=== PATIENT | male | born 1970 | race Caucasian/White ===

== ENCOUNTER → 2018-10-20 | Outpatient (CLI) | payer BC, OTHER ==
--- NOTE | 2018-10-20 16:01 | REP ---
Scrotal ultrasound for right testicular lump: The right testis measures 4.4 x 2.3 x 3.4 cm. Left testis measures 5.3 x 2.1 x 3.8 cm. There are no intratesticular masses or cysts. However, there is an extra testicular nodule at the lower pole of the right testis with rim calcification measuring 6 x 3 x 7 mm. The left testis is unremarkable. The right epididymal head measures 7 ml and left epididymal head 10 mm. There is a right epididymal head 2.3 mm cyst. There is vascular flow in both testes. The Doppler resistive index of the parenchymal arteries on the right is 0.6 and on the left 0.62. Impression: No testicular masses are identified. There is an extra testicular nodule at the lower pole of the right testis measuring 6 x 3 x 7 mm with rim calcification. Electronically Signed by Jonathan Stringer MD 10/20/2018 03:53 P
== END ==
LOC: M RAD 15:00
PROVIDERS: ATTEND Physician Assistant Medical
DX: N49.2 Inflammatory disorders of scrotum (principal); N50.811 Right testicular pain

== ENCOUNTER → 2019-06-14 | Outpatient (REF) | payer OTHER ==
[2019-06-14 13:02] LABS: BASO # 0.1 10^3/uL (0.0-0.2); BASO % 1.4 % (0.0-1.0); EOS # 0.1 10^3/uL (0.0-0.5); EOS % 1.7 % (0.0-3.0); HEMATOCRIT 48.7 % (42.0-52.0); HEMOGLOBIN 16.8 g/dl (13.5-17.5); LYMPH # 0.9 10^3/uL (1.5-5.0); LYMPH % 23.8 % (24.0-44.0); MEAN CORPUSCULAR HEMOGLOBIN 33.1 pg (27.0-33.0); MEAN CORPUSCULAR HGB CONC 34.5 g/dl (32.0-36.5); MEAN CORPUSCULAR VOLUME 95.9 fl (80.0-96.0); MONO # 0.8 10^3/uL (0.0-0.8); MONO % 21.6 % (0.0-5.0); NEUTROPHILS # 1.8 10^3/uL (1.5-8.5); NEUTROPHILS % 50.7 % (36.0-66.0); PLATELET COUNT, AUTOMATED 227 10^3/uL (150-450); RED BLOOD COUNT 5.08 10^6/uL (4.30-6.10); WHITE BLOOD COUNT 3.6 10^3/uL (4.0-10.0)
== END ==
LOC: M LABDRWAD 12:37
PROVIDERS: ATTEND Physician Assistant
DX: G93.3 Postviral and related fatigue syndromes (principal)

== ENCOUNTER → 2025-02-17 | Outpatient (CLI) | payer BC ==
[2025-02-17 17:57] LABS: BASO # 0.0 10^3/uL (0.0-0.2); BASO % 1.0 % (0.0-1.0); EOS # 0.1 10^3/uL (0.0-0.5); EOS % 1.7 % (0.0-3.0); LYMPH # 1.0 10^3/uL (1.5-5.0); LYMPH % 23.6 % (24.0-44.0); MONO # 1.1 10^3/uL (0.0-0.8); MONO % 26.2 % (2.0-8.0); NEUTROPHILS # 2.0 10^3/uL (1.5-8.5); NEUTROPHILS % 47.0 % (36.0-66.0); PLATELET COUNT, AUTOMATED 177 10^3/uL (150-450)
[2025-02-17 17:59] LABS: ALT/SGPT 58.0 U/L (7.0-40); AST/SGOT 62.0 U/L (<34); CALCIUM LEVEL 9.1 MG/DL (8.5-10.1); CARBON DIOXIDE LEVEL 28.0 MMOL/L (20-31); CHLORIDE LEVEL 103.0 MMOL/L (98-107); CREATININE FOR GFR 1.16 MG/DL (0.70-1.30); GLOMERULAR FILTRATION RATE 74.9 (>56); POTASSIUM SERUM 4.6 MMOL/L (3.5-5.1); SODIUM LEVEL 141.0 MMOL/L (136-145)
[2025-02-22 01:26] LABS: BORRELIA SPECIES DNA NOT DETECTED (NOT DETECT)
== END ==
LOC: M WUC 13:19
DX: S40.869A Insect bite (nonvenomous) of unspecified upper arm, initial encounter (principal); W57.XXXA Bitten or stung by nonvenomous insect and other nonvenomous arthropods, initial encounter; Y92.9 Unspecified place or not applicable; Y93.9 Activity, unspecified; Y99.9 Unspecified external cause status